=== PATIENT | female | born 1950 | race Caucasian/White ===

== ENCOUNTER 2019-04-20 08:13 | Emergency (ER) | payer BC, MEDICARE ==
[~2019-04-20] VITALS: Ht 172.7 cm; Wt 104.3 kg
[~2019-04-20 08:13] MED LIST: ATORVASTATIN CA10 M1 PO; CALCIUM PO; CIPROFLOXACIN500 MG PO; COREG CR20 MG PO; COREG12.5 MG PO; CYCLOBENZAPRINE10 MG PO; FLEXERIL10 MG PO; HYDR25T PO; HYDROCHLOROTHIA25 MG PO; HYDROCODONE BIT1 T11 PO; K-LEASE10 MEQ PO; KEFLEX500 MG PO; KLOR-CON 1010 ME1 PO; MEDROL DOSEPAK4 MG PO; MOTRIN800 MG PO; NAPROSYN500 MG PO; NORVASC5 MG PO; PEN-VEE K500 MG PO; PREDNISONE20 MG PO; SYNTHROID0.112 MG PO; Synthroid,Lev200 MCG PO; TOBRAMYCIN 5 ML5 M1 OPH; TOBREX OPHTH S2.5 ML OPH; TRAMADOL HCL50 MG PO; TYLENOL650 M1 PO; ULTRAM50 MG PO; VITAMIN D-32000 UNI1 PO; VITAMIN D32000 IU PO; ZITHROMAX Z PA250 MG PO
[2019-04-20] MEDS ORDERED: POLYTRIM 1000010 M1 OPH (08:38)
== END 2019-04-20 08:49 | disposition home or self-care (01) ==
LOC: ED 08:13
DX: H10.9 Unspecified conjunctivitis (principal); Z88.8 Allergy status to other drugs, medicaments and biological substances; Z79.899 Other long term (current) drug therapy

== ENCOUNTER 2021-03-11 17:30 | Emergency (ER) | payer BC, MEDICARE ==
[~2021-03-11] VITALS: Ht 170.1 cm; Wt 113.4 kg
[~2021-03-11 17:30] MED LIST changes: +POLYTRIM 1000010 M1 OPH
[2021-03-11] MEDS ORDERED: VOLTAREN ARTHRI20 GM T (18:43)
== END 2021-03-11 19:00 | disposition home or self-care (01) ==
LOC: ED 17:30
DX: M17.11 Unilateral primary osteoarthritis, right knee (principal); Z88.8 Allergy status to other drugs, medicaments and biological substances; Z79.899 Other long term (current) drug therapy; Z90.89 Acquired absence of other organs

== ENCOUNTER → 2021-03-16 | Outpatient (CLI) | payer BC ==
[~2021-03-16] MED LIST changes: +VOLTAREN ARTHRI20 GM T
== END | disposition home or self-care (01) ==
LOC: ORTHO 12:06
PROVIDERS: ATTEND Orthopaedic Surgery
DX: M25.561 Pain in right knee (principal)

== ENCOUNTER → 2021-04-12 | Outpatient (CLI) | payer BC | END | disposition home or self-care (01) | LOC: COVID19 16:58 | PROVIDERS: ATTEND Hospitalist | DX: Z11.52 Encounter for screening for COVID-19 (principal) ==

== ENCOUNTER → 2023-04-10 | Outpatient (CLI) | payer BC ==
[2023-04-10 09:56] LABS: BASO % 0.3 % (0.0-1.0); EOS # 0.2 10*3/uL (0.0-0.4); EOS % 2.5 % (1.0-4.0); LYMPH # 2.5 10*3/uL (1.3-4.4); LYMPH % 28.5 % (27.0-41.0); MEAN CORPUSCULAR HGB 28.8 pg (27.0-31.0); MEAN CORPUSCULAR HGB CONC 32.8 g/dl (33.0-37.0); MONO # 0.5 10*3/uL (0.1-1.0); MONO % 5.7 % (3.0-9.0); NEUT # 5.5 10*3/uL (2.3-7.9); NEUT % 62.5 % (47.0-73.0); PLATELET COUNT AUTOMATED 311 10*3/uL (130-400); RED BLOOD COUNT 5.34 10*6/uL (4.10-5.10); RED CELL DISTRI WIDTH 14.3 % (0-14.5); WHITE BLOOD COUNT 8.8 10*3/uL (4.8-10.8)
[2023-04-10 10:39] LABS: ALKALINE PHOSPHATASE 101 U/L (46-116); BUN 10 mg/dl (9-23); CHLORIDE 105 mmol/L (98-107); CHOLESTEROL 157 mg/dL (<200); LDL CHOLESTEROL 83 mg/dL (9-159); POTASSIUM 3.6 mmol/L (3.4-5.1); SGPT/ALT 28 U/L (10-49); TOTAL PROTEIN 7.9 gm/dL (6.0-8.0); TRIGLYCERIDES 151 mg/dl (<150)
== END | disposition home or self-care (01) ==
LOC: LAB 09:33
PROVIDERS: ATTEND Nurse Practitioner Primary Care
DX: I10 Essential (primary) hypertension (principal); E03.9 Hypothyroidism, unspecified; E78.5 Hyperlipidemia, unspecified; E55.9 Vitamin D deficiency, unspecified

== ENCOUNTER → 2023-09-18 | Outpatient (CLI) | payer BC | END | disposition home or self-care (01) | LOC: MAMMO 09-10 14:00 | PROVIDERS: ATTEND Nurse Practitioner Primary Care | DX: Z12.31 Encounter for screening mammogram for malignant neoplasm of breast (principal) ==

== ENCOUNTER → 2023-10-05 | Outpatient (CLI) | payer BC | END | disposition home or self-care (01) | LOC: MAMMO 08-13 09:30 → RAD 08-13 10:00 → MAMMO 09-10 14:00 → RAD 09-28 13:30 | PROVIDERS: ATTEND Nurse Practitioner Primary Care | DX: Z13.820 Encounter for screening for osteoporosis (principal); N95.9 Unspecified menopausal and perimenopausal disorder ==

== ENCOUNTER → 2023-12-06 | Day surgery (SDC) | payer BC ==
[~2023-12-06] VITALS: Ht 172.7 cm; Wt 108.9 kg
[~2023-12-06] MED LIST changes: +Midazolam Hydrochloride 2 MG/2 ML VIAL IV ONE; +Midazolam Hydrochloride 2 MG/2 ML VIAL IV STA; +PROPOFOL 200 MG/20 ML VIAL IV ONE; +SODIUM CHLORIDE 0.9% 1,000 ML IV ONE; +SODIUM CHLORIDE 0.9% 1,000 ML IV SCH
[2023-12-06 09:20] VITALS: BP 141/69
[2023-12-06 11:08] VITALS: BP 99/49
[2023-12-06 11:23] VITALS: BP 105/57
[2023-12-06 11:36] VITALS: BP 106/61
== END | disposition home or self-care (01) ==
LOC: SDC 12-03 08:00
PROVIDERS: ATTEND Surgery
DX: R19.5 Other fecal abnormalities (principal); D12.8 Benign neoplasm of rectum; D12.7 Benign neoplasm of rectosigmoid junction; K57.30 Diverticulosis of large intestine without perforation or abscess without bleeding; I10 Essential (primary) hypertension; E11.9 Type 2 diabetes mellitus without complications; E03.9 Hypothyroidism, unspecified; E78.5 Hyperlipidemia, unspecified; E66.9 Obesity, unspecified; Z90.89 Acquired absence of other organs; Z98.51 Tubal ligation status; Z96.652 Presence of left artificial knee joint; Z87.891 Personal history of nicotine dependence; Z98.890 Other specified postprocedural states; Z79.890 Hormone replacement therapy; Z79.899 Other long term (current) drug therapy; Z88.8 Allergy status to other drugs, medicaments and biological substances; Z82.49 Family history of ischemic heart disease and other diseases of the circulatory system

== ENCOUNTER 2025-02-26 15:06 | Emergency (ER) | payer BC, MEDICARE ==
[~2025-02-26] VITALS: Wt 108.0 kg
[~2025-02-26 15:06] MED LIST changes: -Midazolam Hydrochloride 2 MG/2 ML VIAL IV ONE; -Midazolam Hydrochloride 2 MG/2 ML VIAL IV STA; -PROPOFOL 200 MG/20 ML VIAL IV ONE; -SODIUM CHLORIDE 0.9% 1,000 ML IV ONE; -SODIUM CHLORIDE 0.9% 1,000 ML IV SCH
[2025-02-26] MEDS ORDERED: Acetaminophen/Hydrocodone 5 MG/325 MG TABLET PO ONE (15:35)
[2025-02-26] MEDS ORDERED: NAPROSYN500 MG PO (17:29)
[2025-02-26] MEDS ORDERED: CYCLOBENZAPRINE10 MG PO (17:29)
== END 2025-02-26 17:37 | disposition home or self-care (01) ==
LOC: ED 15:06
DX: M16.11 Unilateral primary osteoarthritis, right hip (principal); I10 Essential (primary) hypertension; E03.9 Hypothyroidism, unspecified; E78.5 Hyperlipidemia, unspecified; Z88.8 Allergy status to other drugs, medicaments and biological substances; Z79.899 Other long term (current) drug therapy; Z90.89 Acquired absence of other organs

== ENCOUNTER → 2025-03-20 | Outpatient (CLI) | payer BC, MEDICARE ==
[2025-03-20 07:37] LABS: BASO # 0.0 10*3/uL (0.0-0.1); BASO % 0.4 % (0.0-1.0); EOS # 0.2 10*3/uL (0.0-0.4); EOS % 2.1 % (1.0-4.0); MEAN CELL VOLUME 91.1 fl (81.0-99.0); MEAN CORPUSCULAR HGB 28.9 pg (27.0-31.0); MEAN PLATELET VOLUME 10.2 fl (9.6-12.3); MONO # 0.6 10*3/uL (0.1-1.0); MONO % 6.5 % (3.0-9.0); NEUT # 6.2 10*3/uL (2.3-7.9); NEUT % 65.0 % (47.0-73.0); NUCLEATED RED BLOOD CELL 0.0 % (0.0-0.0); NUCLEATED RED BLOOD CELL 0.0 10*3/uL (0.0-0.0); PLATELET COUNT AUTOMATED 308 10*3/uL (130-400); RED CELL DISTRI WIDTH 15.0 % (0-14.5)
[2025-03-20 08:45] LABS: BUN 19.0 mg/dl (9-23); LDL CHOLESTEROL 78.0 mg/dL (9-159); SGPT/ALT 20.0 U/L (5-49)
== END | disposition home or self-care (01) ==
LOC: LAB 07:19
PROVIDERS: ATTEND Nurse Practitioner Primary Care
DX: I10 Essential (primary) hypertension (principal); E11.9 Type 2 diabetes mellitus without complications; E55.9 Vitamin D deficiency, unspecified

== ENCOUNTER 2025-07-28 06:28 | Emergency (ER) | payer BC, MEDICARE ==
[~2025-07-28] VITALS: Ht 172.7 cm; Wt 104.3 kg
[~2025-07-28 06:28] MED LIST changes: +CALCIUM + D SO1 EACH PO; -CALCIUM PO
[2025-07-28] MEDS ORDERED: TEARS LUBRICANT15 ML OP (07:19)
== END 2025-07-28 07:33 | disposition home or self-care (01) ==
LOC: ED 06:28
DX: B30.9 Viral conjunctivitis, unspecified (principal); I10 Essential (primary) hypertension; E03.9 Hypothyroidism, unspecified; Z88.8 Allergy status to other drugs, medicaments and biological substances